=== PATIENT | male | born 1945 | race Caucasian/White ===

== ENCOUNTER 2022-03-31 10:43 | Observation (INO) ==
[2022-03-31] MEDS ORDERED: Acetaminophen 325 MG TABLET PO PRN (12:10)
[2022-03-31] MEDS ORDERED: MOM Conc 10 ML UD.LIQ PO PRN (12:10)
[2022-03-31] MEDS ORDERED: Ondansetron ODT 4 MG TAB.RAPDIS SL PRN (12:10)
[2022-03-31] MEDS ORDERED: Naloxone 0.4 MG/ML INJ IVP PRN (12:10)
[2022-03-31] MEDS ORDERED: Melatonin 3 MG TABLET PO PRN (12:10)
[2022-03-31] MEDS ORDERED: *HR* Dextrose 50 % in Water (Syg) 50 ML SYRINGE IVP PRN (12:22)
[2022-03-31] MEDS ORDERED: D5% in Water 1,000 ML IVC PRN (12:22)
[2022-03-31] MEDS ORDERED: Dextrose 4 GM Chewable Tablets PO PRN ×2 (12:22)
[2022-03-31] MEDS ORDERED: Aspirin 81 MG TAB.CHEW PO SCH (13:00)
[2022-03-31] MEDS ORDERED: MIRTAZAPINE 30 MG PO PRN (15:23)
[2022-03-31 16:36] LABS: Hematocrit 38.8 % (37.5-50.1); Hemoglobin 12.6 g/dL (12.9-16.9); Mean Corpuscular HGB Conc 32.5 g/dL (31.6-35.5); Mean Corpuscular Hemoglobin 30.4 pg (28.0-33.3); Mean Corpuscular Volume 93.7 fL (83.0-100.0); Mean Platelet Volume 9.5 fL (9.4-12.4); Platelet Count 225 K/mcL (140-400); Red Blood Count 4.14 M/mcL (4.19-5.50); Red Cell Distribution Width 13.2 % (11.5-14.5); White Blood Count 8.7 K/mcL (4.3-11.1)
[2022-03-31 16:44] LABS: INR 1.3; Prothrombin Time 14.6 Seconds (9.4-12.1)
[2022-03-31 16:55] LABS: BUN/Creatinine Ratio 21 (6-26); Blood Urea Nitrogen 25 mg/dL (8-23); Calcium 9.4 mg/dL (8.6-10.3); Carbon Dioxide 22 mEq/L (23-29); Chloride 104 mEq/L (98-107); Glucose 207 mg/dL (70-105); Magnesium 1.6 mg/dL (1.6-2.6); Osmolality,Calculated 286 (280-300); Potassium 4.4 mEq/L (3.5-5.1); Sodium 133 mEq/L (136-145); eGFR For African Americans > 60 (> 60); eGFR For Non-African Americans > 60 (> 60)
[2022-03-31] MEDS: Insulin LISPRO 300 UNITS/3 ML VIAL SUBQ SCH (17:36)
[2022-03-31 19:20] LABS: Estimated Average Glucose 192 mg/dl; Hemoglobin A1C 8.3 %
[2022-03-31] MEDS: Doxycycline 100 MG CAPSULE PO SCH (20:45)
[2022-03-31] MEDS: Famotidine 20 MG TABLET PO SCH (20:46)
[2022-03-31] MEDS: Apixaban 5 MG TABLET PO SCH (20:46)
[2022-03-31] MEDS ORDERED: Apixaban 5 MG TABLET PO SCH (21:00)
[2022-03-31] MEDS ORDERED: Insulin LISPRO 300 UNITS/3 ML VIAL SUBQ SCH (21:00)
[2022-03-31] MEDS ORDERED: Mirtazapine 15 MG TABLET PO SCH (21:00)
[2022-04-01 06:53] VITALS: O2SAT 96
[2022-04-01] MEDS: Insulin LISPRO 300 UNITS/3 ML VIAL SUBQ SCH ×2 (08:22→11:27)
[2022-04-01] MEDS: Famotidine 20 MG TABLET PO SCH (08:23)
[2022-04-01] MEDS: Apixaban 5 MG TABLET PO SCH (08:23)
[2022-04-01] MEDS: Doxycycline 100 MG CAPSULE PO SCH (08:23)
[2022-04-01] MEDS ORDERED: NON-FORMULARY MEDICATION 1 EACH EACH (Pravastatin Sodium [Pravachol] 80 MG Tablet) PO SCH (09:00)
[2022-04-01] MEDS ORDERED: Aspirin Enteric Coated 81 MG Tablet PO SCH (09:00)
[2022-04-01] MEDS ORDERED: NON-FORMULARY MEDICATION 1 EACH EACH (Lisinopril [Lisinopril] 40 MG Tablet) PO SCH (09:00)
[2022-04-01] MEDS ORDERED: lisinopriL 20 MG TABLET PO SCH (09:00)
[2022-04-01 10:55] VITALS: BP 109/54; PULSE 66; TEMP 98.3
== END 2022-04-01 15:06 | disposition home or self-care (01) ==
LOC: 3BNU
PROVIDERS: ADMIT Internal Medicine; ATTEND Internal Medicine